=== PATIENT | male | born 1985 | race Caucasian/White ===

== ENCOUNTER 2017-12-19 05:34 | Day surgery (SDC) | payer OTHER ==
[~2017-12-19] VITALS: Ht 160 cm; Wt 81.6 kg
[2017-12-19] MEDS ORDERED: DEPO-TESTO100 MG/1 M (06:13)
[2017-12-19] MEDS ORDERED: PERCOCET 5-3251 EACH PO (12:59)
[2017-12-19] MEDS ORDERED: NEURONTIN300 MG PO (12:59)
[2017-12-19] MEDS ORDERED: NUPERCAINAL56.7 GM TOP (13:00)
== END 2017-12-19 13:58 | disposition home or self-care (01) ==
LOC: ER 05:34 → O/R 07:30 → CIR.AMB 10:00
DX: K64.5 Perianal venous thrombosis (principal)

== ENCOUNTER 2021-11-01 05:30 | Day surgery (SDC) | payer OTHER ==
[~2021-11-01] VITALS: Ht 165.1 cm; Wt 84.4 kg
[~2021-11-01 05:30] MED LIST: DEPO-TESTO100 MG/1 M; NEURONTIN300 MG PO; NUPERCAINAL56.7 GM TOP; PERCOCET 5-3251 EACH PO
[2021-11-01] MEDS ORDERED: PERCOCET 5-3251 EACH PO (15:48)
== END 2021-11-01 17:15 | disposition home or self-care (01) ==
LOC: CIR.AMB 05:30 → EDSTATUS 10:15 → SURG 10:15 → CIR.AMB 10:15
PROVIDERS: ATTEND Surgery
DX: N52.01 Erectile dysfunction due to arterial insufficiency (principal); Z91.013 Allergy to seafood; I10 Essential (primary) hypertension; Z86.16 Personal history of COVID-19; J45.909 Unspecified asthma, uncomplicated; Z71.6 Tobacco abuse counseling; F17.210 Nicotine dependence, cigarettes, uncomplicated; Z99.89 Dependence on other enabling machines and devices
CPT/HCPCS: 54405; C1813